=== PATIENT | male | born 1945 | race Caucasian/White ===

== ENCOUNTER 2021-10-22 23:41 | Observation (INO) | payer MEDICARE, OTHER ==
[2021-10-23] MEDS ORDERED: Sucralfate 1 GM/10 ML UDCUP ONE (00:14)
[2021-10-23 00:28] LABS: #Eosinphils 0.1 thou/uL (0.0-0.7); #Lymphocytes 2.1 thou/uL (1.20-3.40); #Monocytes 0.9 thou/uL (0.11-0.59); #Neutrophils 8.7 thou/uL (1.40-6.50); %Basophils 0.4 % (0.0-1.0); %Monocytes 7.3 % (0.0-10.0); %Neutrophils 73.3 % (42.0-75.0); Mean Corpuscular HGB CONC 34.9 g/dL (32.0-36.0); Mean Corpuscular Hemoglobin 31.5 pg (27.0-31.0); Mean Corpuscular Volume 90.3 fL (78.0-98.0); Mean Platelet Volume 7.6 fL (7.4-10.4); Platelet Count 204 thou/uL (130-400); RBC Distribution Width 13.8 % (11.5-14.5); White Blood Cell (WBC) Count 11.9 thou/uL (4.8-10.8)
[2021-10-23 00:48] LABS: ALT (SGPT) 8 U/L (8-55); AST (SGOT) 9 U/L (5-34); Albumin 4.5 g/dL (3.4-4.8); Alkaline Phosphatase 136 U/L (40-110); Anion Gap 23 mmol/L (10-20); BUN (Urea Nitrogen) 12 mg/dL (8.4-25.7); Bilirubin, Total 0.4 mg/dL (0.2-1.2); Calc. Creatinine Clearance 0 mL/min (70-130); Calcium 10.4 mg/dL (7.8-10.44); Carbon Dioxide 23 mmol/L (23-31); Chloride 101 mmol/L (98-107); Estimated GFR 59; Globulin 2.8 g/dL (2.4-3.5); Glucose 348 mg/dL (83-110); Magnesium 2.3 mg/dL (1.6-2.6); Potassium 4.5 mmol/L (3.5-5.1); Protein, Total 7.3 g/dL (5.8-8.1); Sodium 142 mmol/L (136-145)
[2021-10-23 01:53] LABS: Actual Bicarbonate (HCO3v) 22 mEq/L (22-28); Analyzer IN Cardio ER; Calcium, Ionized (venous) 1.06 mmol/L (1.16-1.32); Chloride (VBG) 103 mmol/L (98-106); Hemoglobin (Hb) 16.1 g/dL (12.6-17.4); Potassium (VBG) 4.11 mmol/L (3.70-5.30); Sodium 140.2 mmol/L (133-146); pH (venous) 7.41 (7.32-7.43)
[2021-10-23] MEDS ORDERED: Insulin Regular 300 UNITS/3 ML VIAL ONE (02:10)
[2021-10-23] MEDS ORDERED: Ondansetron ODT 4 MG TAB SL PRN (03:00)
[2021-10-23] MEDS ORDERED: Ondansetron PF 4 MG/2 ML Vial IVP PRN (03:00)
[2021-10-23] MEDS ORDERED: Sodium Chloride 0.9% 1,000 ML IV SCH ×2 (03:00→08:53)
[2021-10-23 03:37] LABS: Troponin I Less than 0.010 ng/mL (< 0.028)
[2021-10-23 05:57] LABS: SARS-CoV-2 NAA Rapid Test Not Detected (NotDetected)
[2021-10-23 06:41] LABS: Troponin I Less than 0.010 ng/mL (< 0.028)
[2021-10-23] MEDS ORDERED: HumaLOG 300 UNITS/3 ML VIAL SC PRN ×2 (08:18)
[2021-10-23] MEDS ORDERED: Dextrose 50% Abboject 50 ML SYRINGE SLOW IVP PRN (08:18)
[2021-10-23] MEDS ORDERED: Dextrose 5% in Water 1,000 ML IV PRN (08:18)
[2021-10-23 09:24] LABS: Hemoglobin A1c 10.2 % (4.0-6.0)
[2021-10-23 09:38] LABS: Anion Gap 12 mmol/L (10-20); BUN (Urea Nitrogen) 10 mg/dL (8.4-25.7); Calc. Creatinine Clearance 0 mL/min (70-130); Carbon Dioxide 27 mmol/L (23-31); Cardiac Risk 4.2 (Less than 4.5); Chloride 106 mmol/L (98-107); Cholesterol 197 mg/dl (< 200 Desired); Estimated GFR 96; Glucose 159 mg/dL (83-110); HDL Cholesterol 47 mg/dL (>60 Neg Risk); LDL Cholesterol, Calculated 129 mg/dL; Potassium 4.2 mmol/L (3.5-5.1); Sodium 141 mmol/L (136-145); Triglycerides 105 mg/dL (Less than 150)
[2021-10-23] MEDS ORDERED: Aspirin Chewable 81 MG TAB ONE (10:08)
[2021-10-23] MEDS: Aspirin Chewable 81 MG TAB PO SCH (10:15)
[2021-10-23 15:16] LABS: Bacteria/HPF None Seen HPF (None Seen); Bilirubin Negative (Negative); Blood, Urine Negative (Negative); Clarity Clear (Clear); Glucose, Urine (Dipstick) Greater than 1000 mg/dL (Negative); Ketone, Urine 10 mg/dL (Negative); Leukocyte Negative Leu/uL (Negative); Nitrite Negative (Negative); Protein, Urine (Dipstick) Negative (Neg-Trace); RBC/HPF 0-3 HPF (0-3); Specific Gravity, Urine 1.035 (1.002-1.036); Squamous Epithelial None Seen HPF (0-3); Urobilinogen Normal mg/dL (Less than 2); WBC/HPF 0-3 HPF (0-3); pH, Urine 7.5 (5.0-9.0)
[2021-10-23 15:18] LABS: Urine Culture Reflex No No
[2021-10-23] MEDS ORDERED: Atorvastatin Calcium 40 MG TAB PO SCH (21:00)
[2021-10-24 04:47] LABS: #Basophils 0.1 thou/uL (0.0-0.2); #Eosinphils 0.2 thou/uL (0.0-0.7); #Lymphocytes 2.5 thou/uL (1.20-3.40); #Monocytes 0.8 thou/uL (0.11-0.59); #Neutrophils 6.6 thou/uL (1.40-6.50); %Basophils 0.8 % (0.0-1.0); %Lymphocytes 24.5 % (21.0-51.0); %Monocytes 7.8 % (0.0-10.0); Hemoglobin 15.1 g/dL (14.0-18.0); Mean Corpuscular HGB CONC 33.6 g/dL (32.0-36.0); Mean Corpuscular Hemoglobin 30.4 pg (27.0-31.0); Mean Corpuscular Volume 90.5 fL (78.0-98.0); Mean Platelet Volume 7.8 fL (7.4-10.4); Platelet Count 179 thou/uL (130-400); RBC Distribution Width 13.3 % (11.5-14.5); Red Blood Cell (RBC) Count 4.97 mill/uL (4.70-6.10); White Blood Cell (WBC) Count 10.1 thou/uL (4.8-10.8)
[2021-10-24 05:57] LABS: Anion Gap 11 mmol/L (10-20); BUN (Urea Nitrogen) 14 mg/dL (8.4-25.7); Calc. Creatinine Clearance 78 mL/min (70-130); Calcium 9.2 mg/dL (7.8-10.44); Carbon Dioxide 27 mmol/L (23-31); Chloride 105 mmol/L (98-107); Estimated GFR 96; Glucose 127 mg/dL (83-110); Potassium 4.4 mmol/L (3.5-5.1); Sodium 139 mmol/L (136-145)
[2021-10-24] MEDS ORDERED: ADENOSINE 60 MG/20 ML VIAL ONE (09:47)
[2021-10-24] MEDS: Aspirin Chewable 81 MG TAB PO SCH (10:03)
[2021-10-24 15:57] VITALS: BP 151/73; TEMP 98
== END 2021-10-24 17:58 | disposition home or self-care (01) ==
LOC: ERS 23:41 → ERHOLD 10-23 02:43 → 2SW 10-23 15:32
PROVIDERS: ADMIT Hospitalist; ATTEND Hospitalist
DX: R07.2 Precordial pain (principal); R55 Syncope and collapse; E11.65 Type 2 diabetes mellitus with hyperglycemia; D72.829 Elevated white blood cell count, unspecified; I10 Essential (primary) hypertension; E78.00 Pure hypercholesterolemia, unspecified; F17.210 Nicotine dependence, cigarettes, uncomplicated; R32 Unspecified urinary incontinence; I44.4 Left anterior fascicular block; E86.0 Dehydration; I07.1 Rheumatic tricuspid insufficiency; Z79.84 Long term (current) use of oral hypoglycemic drugs; Z79.899 Other long term (current) drug therapy; Z88.5 Allergy status to narcotic agent; Z20.822 Contact with and (suspected) exposure to COVID-19
CPT/HCPCS: 70450; 71045; 78452; 80048 ×2; 80061; 80307; 81001; 82010; 82805; 82962; 83036; 83735; 84484 ×2; 85025; 93005; 93017; 93306; 94760; 97139 ×2; A9500; U0002; 36415; 36416; 80053; 84443; G0378; J0153; J1815; J7050